=== PATIENT | female | born 1940 | race African-American/Black ===

== ENCOUNTER 2017-04-08 10:58 | Emergency (ER) | payer OTHER ==
[~2017-04-08] VITALS: Ht 165.1 cm; Wt 75.0 kg
[2017-04-08 10:59] VITALS: BP 161/89
== END 2017-04-08 11:36 | disposition home or self-care (01) ==
LOC: ER 10:58
DX: M25.532 Pain in left wrist (principal); I10 Essential (primary) hypertension; E03.9 Hypothyroidism, unspecified; M06.9 Rheumatoid arthritis, unspecified; V43.52XA Car driver injured in collision with other type car in traffic accident, initial encounter; Y93.89 Activity, other specified; Y92.488 Other paved roadways as the place of occurrence of the external cause
CPT/HCPCS: 99283

== ENCOUNTER 2017-04-22 15:36 | Emergency (ER) | payer OTHER ==
[~2017-04-22] VITALS: Ht 157.5 cm; Wt 60.0 kg
[2017-04-22] MEDS ORDERED: LIDOCAINE HCL 1% 20ML VIAL (Pyxis) INJ INFIL ONE (17:15)
[2017-04-22] MEDS ORDERED: TETANUS, DIPHTHERIA, PERTUSSIS VAC/PF 0.5ML (>7YR OLD) IM ONE (17:15)
[2017-04-22 19:08] VITALS: BP 130/69
== END 2017-04-22 19:55 | disposition home or self-care (01) ==
LOC: ER 15:51
DX: S01.319A Laceration without foreign body of unspecified ear, initial encounter (principal); W01.0XXA Fall on same level from slipping, tripping and stumbling without subsequent striking against object, initial encounter; I10 Essential (primary) hypertension; E03.9 Hypothyroidism, unspecified; Z23 Encounter for immunization; Z85.3 Personal history of malignant neoplasm of breast
CPT/HCPCS: 12011; 90471; 90715; 99283; J3490

== ENCOUNTER 2017-04-30 10:54 | Emergency (ER) | payer OTHER ==
[~2017-04-30] VITALS: Ht 162.6 cm; Wt 59.5 kg
[2017-04-30 11:02] VITALS: BP 138/79
== END 2017-04-30 12:24 | disposition home or self-care (01) ==
LOC: ER 12:23
DX: Z48.02 Encounter for removal of sutures (principal)
CPT/HCPCS: 99281